=== PATIENT | male | born 1995 | race Two or more races ===

== ENCOUNTER 2017-03-09 18:00 | Emergency (ER) | payer BC ==
[~2017-03-09] VITALS: Ht 167.6 cm; Wt 75.9 kg
[~2017-03-09 18:00] MED LIST: ADVIL,NUPRIN,M200 MG PO; ALBUTEROL17 GM; ALLEGRA ALLERG180 MG PO; AMITRIPTYLINE H10 MG PO; AMOXICILLIN875 MG PO; BENTYL20 MG PO; CARAFATE100 MG/ML PO; CEFDINIR300 MG PO; CYPROHEPTAD2 MG/5 M2 PO; CYPROHEPTAD2 MG/5 ML PO; ELAVIL10 MG PO; ERYTHROMYCIN250 M1 PO; GRANISETRON HCL1 MG PO; HYOSCYAMINE0.125 MG PO; NAPROSYN500 MG PO; NASONEX17 GM BOTH NARES; OMEPRAZOLE40 M1 PO; PANTOPRAZOLE SO40 MG PO; PERCOCET 5/31 TABLET PO; PROMETHAZINE HC25 M1 PO; PROTONIX40 MG PO; SINGULAIR10 MG PO; SUCRALFATE1 GM PO; TRANSDERM-SCO1 PATCH TD; TYLENOL EXTRA500 MG PO; TYLENOL WITH C1 EACH PO; ULTRACET1 TABLET PO; VALIUM2 MG PO; ZOFRAN ODT4 MG PO; ZYRTEC10 M3 PO
[2017-03-09 19:08] LABS: HEMATOCRIT 47.6 % (38.0-50.0); MCH 30.8 PG (29.0-34.0); MCHC 34.9 G/DL (30.0-36.0); MCV 88.3 FL (86-99); MEAN PLAT.VOLUME 10.3 uM^3 (9.0-12.4); PLATELET COUNT 313 K/uL (156-360); RED BLOOD COUNT 5.39 M/uL (4.00-5.50); WHITE BLOOD COUNT 17.2 K/uL (4.1-10.2)
[2017-03-09 19:17] LABS: CHLORIDE 110 mEq/L (99-109); POTASSIUM 4.8 mEq/L (3.7-5.4); SODIUM 143 mEq/L (136-147)
[2017-03-09 19:18] LABS: GLUCOSE 135 mg/dL (70-99)
[2017-03-09 19:20] LABS: ANION GAP 15 MEQ/L (2-14); TOTAL BILIRUBIN 0.3 mg/dL (0.0-1.0)
[2017-03-09 19:22] LABS: ALKALINE PHOSPHATASE 114 IU/L (3-129); GFR ESTIMATE (CALCULATED) > 59 mL/min/
[2017-03-09 19:23] LABS: UREA NITROGEN (BUN) 15 mg/dL (9-23)
[2017-03-09 19:30] LABS: LIPASE 23 U/L (1.0-51.0)
[2017-03-09 20:15] LABS: ADD MIUA? YES; BILIRUBIN NEGATIVE; BLOOD NEGATIVE; COLOR AMBER ((YELLOW)); GLUCOSE (STRIP) NEGATIVE; KETONES 20; LEUKOCYTES SMALL; NITRITE NEGATIVE; PROTEIN (STRIP) >=500; SPECIFIC GRAVITY 1.035 (1.000-1.030); UROBILINOGEN 0.2 MG/DL (0.2-1.0)
[2017-03-09] MEDS ORDERED: VENTOLIN HFA18 GM IH (20:19)
[2017-03-09 20:20] LABS: BACTERIA RARE /HPF; EPITHELIAL CELLS RARE /HPF; HYALINE CASTS 0-5 /LPF; MUCUS 3+ /LPF; UCUL ADDED? YES
[2017-03-09 20:35] LABS: AMPHETAMINE NEGATIVE (500 ng/mL); BARBITURATES NEGATIVE (200 ng/mL); BENZODIAZEPINES PRESUMPTIVE POSITIVE (150 ng/mL); COCAINE NEGATIVE (150 ng/mL); INTERNAL CONTROLS VALID? YES; METHADONE NEGATIVE (200 ng/mL); METHAMPHETAMINE NEGATIVE (500 ng/mL); OPIATES (MORPHINE) NEGATIVE (100 ng/mL); OXYCODONE NEGATIVE (100 ng/mL); PHENCYCLIDINE NEGATIVE (25 ng/mL); PROPOXYPHENE NEGATIVE (300 ng/mL); THC CANNABINOIDS PRESUMPTIVE POSITIVE (50 ng/mL); TRICYCLIC ANTIDEPRESSANTS NEGATIVE (300 ng/mL)
[2017-03-09 20:36] LABS: ADD MEDTOX COMMENT Y
[2017-03-09 21:17] LABS: BENZODIAZEPINES QUANT VALUE 0 NG/ML; BENZODIAZEPINES, URINE SCREEN Negative (200 ng/mL)
[2017-03-09] MEDS ORDERED: PHENERGAN25 MG PR (23:08)
[2017-03-09] MEDS ORDERED: KEFLEX500 MG PO (23:08)
[2017-03-09 23:51] VITALS: BP 151/63
[2017-03-13] MEDS ORDERED: ZOFRAN ODT8 MG PO (20:26)
[2017-03-13] MEDS ORDERED: ATIVAN0.5 MG PO (20:27)
== END 2017-03-09 23:53 | disposition home or self-care (01) ==
LOC: EME 18:00
PROVIDERS: Nurse Practitioner Family
DX: R11.10 Vomiting, unspecified (principal); F12.10 Cannabis abuse, uncomplicated; N39.0 Urinary tract infection, site not specified; D72.829 Elevated white blood cell count, unspecified; Z86.718 Personal history of other venous thrombosis and embolism; Z86.14 Personal history of Methicillin resistant Staphylococcus aureus infection; F17.200 Nicotine dependence, unspecified, uncomplicated
CPT/HCPCS: 74177; 80053; 81003; 83690; 84999; 85027; 87086; 99281; 99285; J1200; J1630; J2765

== ENCOUNTER 2017-09-02 11:49 | Emergency (ER) | payer BC ==
[~2017-09-02] VITALS: Ht 170.2 cm; Wt 90.7 kg
[~2017-09-02 11:49] MED LIST changes: +ATIVAN0.5 MG PO; +KEFLEX500 MG PO; +PHENERGAN25 MG PR; +VENTOLIN HFA18 GM IH; +ZOFRAN ODT8 MG PO
[2017-09-02] MEDS ORDERED: NAPROSYN500 MG PO (12:53)
[2017-09-02 13:20] VITALS: BP 126/81
== END 2017-09-02 13:21 | disposition home or self-care (01) ==
LOC: EME 11:49
DX: S93.601A Unspecified sprain of right foot, initial encounter (principal); Y93.61 Activity, american tackle football; F17.200 Nicotine dependence, unspecified, uncomplicated
CPT/HCPCS: 73630; 99281; 99284